=== PATIENT | female | born 1965 | race Caucasian/White ===

== ENCOUNTER → 2017-03-10 | Outpatient (CLI) | payer BC ==
[~2017-03-10] MED LIST: CHOL100010 PO; CZR25 PO; LPT/20 PO; MISCCAP80 PO; PRLSR20 PO; WLLSR100 PO
--- NOTE | 2017-03-10 13:06 | DIAGNOSTIC IMAGING REPORT ---
LEFT TIBIA AND FIBULA 2 VIEWS CLINICAL HISTORY: Left perry pain. No reported history of trauma. FINDINGS: AP and lateral views of the left tibia and fibula are obtained. No prior studies are available for comparison at the time of dictation. The skeletal structures are well mineralized. No fracture is identified. The knee and ankle joints are grossly maintained. Pretibial soft tissue edema is noted. No radiodense foreign body is identified. No subcutaneous gas is seen. IMPRESSION: Soft tissue edema with no radiographic evidence of fracture. Electronically signed by: Dustin Garcia M.D. 03/10/2017 1:04 PM Dictated Date/Time: 03/10/2017 1:02 PM
== END | disposition home or self-care (01) ==
LOC: C.RAD1850 12:41
PROVIDERS: ATTEND Nurse Practitioner Family
DX: M89.8X6 Other specified disorders of bone, lower leg (principal); R20.2 Paresthesia of skin

== ENCOUNTER → 2017-05-02 | Outpatient (CLI) | payer BC ==
--- NOTE | 2017-05-02 13:54 | MAMMOGRAPHY REPORT ---
BILATERAL DIGITAL SCREENING MAMMOGRAM TOMOSYNTHESIS WITH CAD: 05/02/2017 CLINICAL HISTORY: Routine screening. Patient has no complaints. Routine screening. Patient has no c omplaints. TECHNIQUE: Breast tomosynthesis in addition to standard 2D mammography was performed. Current study was also evaluated with a Computer Aided Detection (CAD) system. COMPARISON: Comparison is made to exams dated: 04/08/2016 mammogram, 04/06/2015 mammogram, 04/05/2014 m ammogram, 04/02/2013 mammogram, and 03/30/2012 mammogram - [facility]. BREAST COMPOSITION: The tissue of both breasts is almost entirely fatty. FINDINGS: No suspicious masses, calcifications, or areas of architectural distortion are noted in ei ther breast. There has been no significant interval change compared to prior exams. There are stable post surgical changes from bilateral reduction mammoplasty. Scattered bilateral benign-appearing ca lcifications are not significantly changed. IMPRESSION: ACR BI-RADS CATEGORY 2: BENIGN There is no mammographic evidence of malignancy. A 1 year screening mammogram is recommended. The pa tient will receive written notification of the results. Approximately 10% of breast cancers are not detected with mammography. A negative mammographic report should not delay biopsy if a clinically suggestive mass is present. Cherie Chavarria M.D. /:05/02/2017 12:41:38 [place]: Fabiola SCHMID(Gaetano)(), [facility] letter sent: Normal 1/2 BI-RADS Code: ACR BI-RADS Category 2: Benign
== END | disposition home or self-care (01) ==
LOC: C.MAMM 09:16
PROVIDERS: ATTEND Nurse Practitioner Family
DX: Z12.31 Encounter for screening mammogram for malignant neoplasm of breast (principal)

== ENCOUNTER → 2018-06-12 | Outpatient (CLI) | payer OTHER ==
[~2018-06-12] MED LIST changes: -CHOL100010 PO; +CHOL20007 PO; -LPT/20 PO; +METF-382 PO; -MISCCAP80 PO; +MTR600X PO; +OPTIRAY 320 IV PRN; -PRLSR20 PO; +VITAMIN B12 PO; -WLLSR100 PO
--- NOTE | 2018-06-12 18:33 | DIAGNOSTIC IMAGING REPORT ---
ABDOMEN AND PELVIS CT WITH IV AND ORAL CONTRAST CT DOSE: 1685.19 mGy.cm HISTORY: Left lower quadrant pain. DIVERTICULOSIS TECHNIQUE: Multiaxial CT images of the abdomen and pelvis were performed following the use of intravenous and oral contrast. A dose lowering technique was utilized adhering to the principles of ALARA. COMPARISON STUDY: Abdomen and pelvis CT 07/06/2015. Abdomen and pelvis CT 07/19/2014. FINDINGS: The lung bases are essentially clear. No pneumoperitoneum. No pneumatosis. No suspicious lytic or blastic osseous lesions. Cholecystectomy. Hepatic steatosis. The pancreas, spleen, adrenal glands, and kidneys are unremarkable. No hydronephrosis. No retroperitoneal lymphadenopathy. The bladder, uterus, and ovaries are unremarkable. Focal thickening within the mid sigmoid colon with an inflamed diverticulum best seen on image 385. This is consistent with acute diverticulitis. No perforation or abscess at this time. No evidence for bowel obstruction. Normal appendix. Stable 9 mm subcutaneous nodule within the right lateral upper abdominal wall. Therefore, this is likely benign. IMPRESSION: 1. Acute sigmoid diverticulitis. No perforation or abscess at this time. 2. Normal appendix. 3. Hepatic steatosis. 4. Cholecystectomy. Electronically signed by: Bernard Welch M.D. 06/12/2018 6:32 PM Dictated Date/Time: 06/12/2018 6:25 PM
== END | disposition home or self-care (01) ==
LOC: C.CTS 15:47
PROVIDERS: ATTEND Nurse Practitioner Family
DX: K57.30 Diverticulosis of large intestine without perforation or abscess without bleeding (principal); R10.32 Left lower quadrant pain; K76.0 Fatty (change of) liver, not elsewhere classified

== ENCOUNTER → 2018-07-10 | Outpatient (CLI) | payer OTHER ==
[~2018-07-10] MED LIST changes: -OPTIRAY 320 IV PRN
--- NOTE | 2018-07-14 06:58 | MAMMOGRAPHY REPORT ---
BILATERAL DIGITAL SCREENING MAMMOGRAM TOMOSYNTHESIS WITH CAD: 07/10/2018 CLINICAL HISTORY: Routine screening. TECHNIQUE: The study was acquired using full field digital technology and interpreted from soft copy. Breast tomosynthesis in addition to standard 2D mammography was performed. Current study was also ev aluated with a Computer Aided Detection (CAD) system. COMPARISON: Comparison is made to exams dated: 05/02/2017 mammogram, 04/08/2016 mammogram, 04/06/2015 ma mmogram, 04/05/2014 mammogram, 04/02/2013 mammogram, and 03/30/2012 mammogram - [facility]. BREAST COMPOSITION: The tissue of both breasts is almost entirely fatty. FINDINGS: No suspicious masses, calcifications, or areas of architectural distortion are noted in either breast . There has been no significant interval change compared to prior exams. Scattered bilateral benign-a ppearing calcifications are not significantly changed. There are stable post surgical changes from b ilateral reduction mammoplasty. IMPRESSION: ACR BI-RADS CATEGORY 2: BENIGN There is no mammographic evidence of malignancy. A 1 year screening mammogram is recommended.( [id number]) The patient will receive written notification of the results. Some breast cancers are not detected with mammography. A negative mammographic report should not beau y biopsy if a clinically suggestive mass is present. Cherie Chavarria M.D. ah/:07/10/2018 15:44:06 [place]: RT Shari(Gaetano)(M), [facility] letter sent: Normal 1/2 BI-RADS Code: ACR BI-RADS Category 2: Benign
== END | disposition home or self-care (01) ==
LOC: C.MAMM 14:12
PROVIDERS: ATTEND Nurse Practitioner Family
DX: Z12.31 Encounter for screening mammogram for malignant neoplasm of breast (principal)